=== PATIENT | female | born 1940 | race Two or more races ===

== ENCOUNTER 2017-03-23 13:50 | Emergency (ER) | payer MEDICARE ==
[~2017-03-23] VITALS: Ht 165.1 cm; Wt 75.7 kg
[2017-03-23] MEDS ORDERED: SUCR1TAB PO (14:04)
[2017-03-23] MEDS ORDERED: METF500T4 PO (14:04)
[2017-03-23] MEDS ORDERED: AMLO5TAB2 PO (14:04)
[2017-03-23] MEDS ORDERED: OMEP40CA37 PO (14:04)
[2017-03-23] MEDS ORDERED: PERP1TAB5 PO (14:04)
[2017-03-23] MEDS ORDERED: PROM6.25 PO (14:04)
[2017-03-23] MEDS ORDERED: BENA20TA2 PO (14:04)
[2017-03-23] MEDS ORDERED: ALPR1TAB7 PO (14:04)
[2017-03-23] MEDS ORDERED: ASPI-1169 PO (14:04)
[2017-03-23] MEDS ORDERED: MELO-105 PO (14:04)
[2017-03-23 14:25] LABS: BASOPHILS % (AUTO) 0.5 % (0.0-2.0); EOSINOPHILS # (AUTO) 0.1 /CMM (0.0-0.7); EOSINOPHILS % (AUTO) 0.9 % (0.0-6.0); HEMATOCRIT 37 % (33-45); HEMOGLOBIN 12.2 g/dL (11.5-14.8); LYMPHOCYTES # (AUTO) 1.7 /CMM (0.8-4.8); LYMPHOCYTES % (AUTO) 29.5 % (20.0-44.0); MEAN CORPUSCULAR HEMOGLOBIN 30 PG (26.0-33.0); MEAN CORPUSCULAR HGB CONC 33 g/dl (31.0-36.0); MEAN CORPUSCULAR VOLUME 89 fL (82-100); MONOCYTES # (AUTO) 0.8 /CMM (0.1-1.30); MONOCYTES % (AUTO) 14.8 % (2.0-12.0); NEUTROPHILS # (AUTO) 3.1 /CMM (1.8-8.9); NEUTROPHILS % (AUTO) 54.3 % (43.0-81.0); PLATELET COUNT (AUTO) 230 /CMM (150-450); WHITE BLOOD COUNT (AUTO) 5.7 K/uL (4.3-11.0)
[2017-03-23] MEDS ORDERED: IV NS 0.9% 500 ML BAG IV ONE (14:30)
[2017-03-23 14:43] LABS: CALCIUM, SERUM 8.4 mg/dL (8.5-10.1); CARBON DIOXIDE 25 mmol/L (21-32); CHLORIDE 106 mmol/L (98-107); CREATININE 1.1 mg/dL (0.6-1.3); GLUCOSE 98 mg/dL (74-106); POTASSIUM 3.7 mmol/L (3.5-5.1); SODIUM SERUM 141 mmol/L (136-145); UREA NITROGEN, BLOOD 20 mg/dL (7-18)
[2017-03-23 14:50] LABS: TROPONIN I < 0.017 ng/mL (0.00-0.056)
--- NOTE | 2017-03-23 14:50 | NUR ---
CALLED POISON CONTROL SPOKE WITH ZAC HE ADVISED AN EKG STRIP TO WATCH FOR ANY QRS AND QTC INTERVAL ABNORMALITIES, OBTAIN AN URINE DRUG SCREEN, TYLENOL AND ASA LEVEL, AND OBSERVATION LEVEL WILL DEPEND ON PATIENT'S MENTAL STATUS SINCE THE PEAK FOR A LIQUID INGESTION WILL USUALLY BE 2-3 HOURS AFTER INGESTION.
[2017-03-23 14:58] LABS: ALANINE AMINOTRANSFERASE 32 U/L (12-78); ALBUMIN 3.1 g/dL (3.4-5.0); ALCOHOL, BLOOD < 3 mg/dL (0-0); ALKALINE PHOSPHATASE 56 U/L (46-116); ASPARTATE AMINOTRANSFERASE 22 U/L (15-37); BILIRUBIN,TOTAL 0.2 mg/dL (0.2-1.0); TOTAL PROTEIN, SERUM 6.5 g/dL (6.4-8.2)
[2017-03-23 15:22] LABS: APPEARANCE,URINE Slightly Cloudy (CLEAR); BILIRUBIN,URINE Negative (NEGATIVE); BLOOD, URINE Negative Ery/uL (NEGATIVE); COLOR,URINE Yellow (YELLOW); KETONES,URINE Trace (NEGATIVE); LEUKOCYTE ESTERASE ,URINE Small (NEGATIVE); NITRITE, URINE Negative (NEGATIVE); PH,URINE 5.5 (5.0-8.0); PROTEIN,URINE 100 mg/dl (NEGATIVE); UGLUCOSE Negative (NEGATIVE); UROBILINOGEN,URINE 0.2 EU/dL (0.2)
[2017-03-23] MEDS ORDERED: ALBUTEROL FS 2.5 MG/3 ML VIAL.NEB NEB ONE (15:30)
[2017-03-23 15:37] LABS: ACETAMINOPHEN < 2 ug/ml (10-30); SALICYLATE 1.7 mg/dL (2.8-20.0)
[2017-03-23] MEDS ORDERED: ALBUTEROL FS 2.5 MG/3 ML VIAL.NEB ONE (15:52)
[2017-03-23 16:01] LABS: BACTERIA,URINE 1+ /HPF (None Seen); RBC,URINE 0-2 /HPF (0-2); SQUAMOUS EPITHELIAL CELL,UR Few /HPF (None Seen)
[2017-03-23 17:18] VITALS: BP 106/63
== END 2017-03-23 17:20 | disposition home or self-care (01) ==
LOC: ER 13:55
DX: T43.3X1A Poisoning by phenothiazine antipsychotics and neuroleptics, accidental (unintentional), initial encounter (principal); J40 Bronchitis, not specified as acute or chronic; N39.0 Urinary tract infection, site not specified; I10 Essential (primary) hypertension; K21.9 Gastro-esophageal reflux disease without esophagitis; E11.9 Type 2 diabetes mellitus without complications; Z86.73 Personal history of transient ischemic attack (TIA), and cerebral infarction without residual deficits; Z79.82 Long term (current) use of aspirin; Y92.098 Other place in other non-institutional residence as the place of occurrence of the external cause
CPT/HCPCS: 36415; 71010; 80048; 80076; 80329; 81001; 82962; 84484; 85025; 87086; 93005; 94640; 99285; A4606; G0480 ×2; 81000-TC; Z7610